=== PATIENT | male | born 1970 | race Caucasian/White ===

== ENCOUNTER 2016-09-11 07:00 | Outpatient (CLI) | payer BC ==
[2016-09-11 13:16] LABS: BUN - BLOOD UREA NITROGEN 8 mg/dL (6-20); CALCIUM 9.4 mg/dL (8.5-10.3); CARBON DIOXIDE - CO2 28 mmol/L (21-32); CHLORIDE 95 mmol/L (101-111); CHOL/HDL RATIO 3.6 (<5.0); CHOLESTEROL 296 mg/dL; CREATININE 0.7 mg/dL (0.6-1.2); GFR - MDRD 121 (>89); GLUCOSE 100 mg/dL (70-100); HDL CHOLESTEROL 82 mg/dL; LDL/HDL RATIO 2.5 (<3.6); POTASSIUM 4.4 mmol/L (3.5-5.0); SODIUM 129 mmol/L (135-145); TRIGLYCERIDES 45 mg/dL; VLDL CHOLESTEROL 9 mg/dL
== END 2016-09-11 07:01 | disposition home or self-care (01) ==
LOC: LAB.F 07:00
PROVIDERS: ATTEND Nurse Practitioner Family
DX: Z13.1 Encounter for screening for diabetes mellitus (principal)
CPT/HCPCS: 36415; 80048; 80061